=== PATIENT | male | born 1975 | race Caucasian/White ===

== ENCOUNTER 2024-07-22 13:30 | Inpatient (IN) | payer BC ==
[~2024-07-22] VITALS: Ht 157.5 cm; Wt 68.1 kg
--- NOTE | 2024-07-22 13:53 | ED.PDOC ---
General HPI Comments 48 year old male presents to the ED with chief complaint of flank pain. Patient reports that he has been experiencing 7/10 right flank pain with associated nausea and chills since this morning. Patient relays that he took some of his 's 500mg Naproxen with no relief noted. Patient states he has history of kidney stones and kidney stents in the past. Patient denies any dysuria, hematuria, abdominal pain, fever, dizziness, or headache. Chief Complaint: Flank Pain Time Seen by MD: 13:51 Primary Care Provider: UNKNOWN Reviewed notes: Nurses Notes, Medications, Allergies Allergies: Coded Allergies: NO KNOWN ALLERGIES (Unverified , 07/22/24) Information Source: Patient Mode of Arrival: Ambulatory Severity: Moderate Inability to void: None Timing: Hours Duration: Since onset Prehospital treatment: None Onset: Spontaneous Symptoms: None History of: Kidney stone Location: (R) Flank Penile discharge: None Modifying factors: None associated signs and symptoms: Nausea, Flank Pain Past Medical History PAST MEDICAL HISTORY: Kidney Stones Surgical History (Other): Kidney stents Family History Family History: Reviewed,noncontributory to illness Social History Smoker: Cigarettes Alcohol: Denies ETOH Use Drugs: Denies Drug Use Lives In: Home Constitutional: reports: chills; denies: diaphoresis, fatigue, fever, malaise, sweats, weakness, others EENTM: denies: blurred vision, double vision, ear bleeding, ear discharge, ear drainage, ear pain, ear ringing, eye pain, eye redness, hearing loss, mouth pain, mouth swelling, nasal discharge, nose bleeding, nose congestion, nose pain, photophobia, tearing, throat pain, throat swelling, voice changes, others Respiratory: denies: cough, hemoptysis, orthopnea, SOB at rest, shortness of breath, SOB with excertion, stridor, wheezing, others Cardiovascular: denies: chest pain, dizzy spells, diaphoresis, Dyspnea on exertion, edema, irregular heart beat, left arm pain, lightheadedness, palpitations, PND, syncope, others Gastrointestinal: reports: nausea; denies: abdomen distended, abdominal pain, blood streaked bowels, constipated, diarrhea, dysphagia, difficulty swallowing, hematemesis, melena, poor appetite, poor fluid intake, rectal bleeding, rectal pain, vomiting, others Genitourinary: reports: flank pain; denies: burning, dysuria, frequency, hematuria, incontinence, penile discharge, penile sore, pain, testicle pain, testicle swelling, urgency, others Neurological: denies: dizziness, fainting, headache, left sided numbness, left sided weakness, numbness, paresthesia, pre-existing deficit, right sided numbness, right sided weakness, seizure, speech problems, tingling, tremors, weakness, others Musculoskeletal: denies: back pain, gout, joint pain, joint swelling, muscle pain, muscle stiffness, neck pain, others Integumetry: denies: bruises, change in color, change in hair/nails, dryness, laceration, lesions, lumps, rash, wounds, others Allergic/Immunocompromised: denies: Difficulty Healing, Frequent Infections, Hives, Itching, others Hematologic/Lymphatic: denies: anemia, blood clots, easy bleeding, easy bruising, swollen glands, others Endocrine: denies: excessive hunger, excessive sweating, excessive thirst, excessive urination, flushing, intolerance to cold, intolerance to heat, unexplained weight gain, unexplained weight loss, others Psychiatric: denies: anxiety, bipolar disorder, depression, hopeless, panic disorder, schizophrenia, sleepless, suicidal, others All Other Systems: Reviewed and Negative Physical Exam General Appearance: Moderate Distress HEENT: Normal ENT Inspection, Pharynx Normal, TMs Normal Neck: Full Range of Motion, Non-Tender, Normal, Normal Inspection Respiratory: Chest Non-Tender, Lungs Clear, No Accessory Muscle Use, No Respiratory Distress, Normal Breath Sounds Cardiovascular: No Edema, No JVD, No Murmur, No Gallop, Normal Peripheral Pulses, Regular Rate/Rhythm Breast Exam: Deferred Gastrointestinal: No Organomegaly, Non Tender, No Pulsatile Mass, Normal Bowel Sounds, Soft Genitalia: Deferred Pelvic: Deferred Rectal: Deferred Extremities: No calf tenderness, Normal capillary refill, Normal inspection, Normal range of motion, Non-tender, No pedal edema Musculoskeletal : Location: Right Extremity Location: Back Apperance: Limited ROM, Tenderness: Moderate Neurologic: Alert, exchange operator II-XII nml as Tested, No Motor Deficits, Normal Affect, Normal Mood, No Sensory Deficits Cerebellar Function: Normal Reflexes: Normal Skin: Dry, Normal Color, Warm Lymphatic: No Adenopathy Was a procedure done? Was a procedure done?: No Differential Diagnosis Kidney stone (Female): N/A Kidney stone (Male): Pyelonephritis, Urolithiasis, Urinary tract infection X-Ray, Labs, Meds, VS Vital Signs Date Time Temp Pulse Resp B/P (MAP) Pulse Ox O2 Delivery O2 Flow Rate FiO2 07/22/24 16:04 97.9 101 18 133/90 (104) 98 97.9 07/22/24 15:30 17 Room Air* 0 21 07/22/24 13:41 97.6 105 20 149/86 (107) 98 Lab Test 07/22/24 14:02 Range/Units White Blood Count 23.6 H 4.4-10.8 10^3/uL Red Blood Count 5.33 4.5-5.90 10^6/uL Hemoglobin 16.5 13.5-17.5 g/dL Hematocrit 49.6 41.0-53.0 % Mean Corpuscular Volume 93.0 80.0-100.0 fL Mean Corpuscular Hemoglobin 31.0 28.0-32.0 pg Mean Corpuscular Hemoglobin Concent 33.3 32.0-36.0 g/dL Red Cell Distribution Width 13.8 11.8-14.3 % Platelet Count 379 140-450 10^3/uL Mean Platelet Volume 7.3 6.9-10.8 fL Neutrophils (%) (Auto) 88.0 H 37.0-80.0 % Lymphocytes (%) (Auto) 3.4 L 10.0-50.0 % Monocytes (%) (Auto) 8.4 0.0-12.0 % Eosinophils (%) (Auto) 0.0 0.0-7.0 % Basophils (%) (Auto) 0.2 0.0-2.0 % Neutrophils # (Auto) 20.7 H 1.6-8.6 10 ^3/uL Lymphocytes # (Auto) 0.8 0.4-5.4 10 ^3/uL Monocytes # (Auto) 2.0 H 0-1.3 10 ^3/uL Eosinophils # (Auto) 0 0-0.8 10 ^3/uL Basophils # (Auto) 0 0-0.2 10 ^3/uL Nucleated Red Blood Cells 0.0 % Sodium Level 138 136-145 mmol/L Potassium Level 4.3 3.5-5.1 mmol/L Chloride Level 103 98-107 mmol/L Carbon Dioxide Level 28 20-31 mmol/L Anion Gap 7 5-15 Blood Urea Nitrogen 11 9-23 mg/dL Creatinine 1.39 H 0.700-1.30 mg/dL Glomerular Filtration Rate Calc 63 >90 mL/min BUN/Creatinine Ratio 7.9 L 10.0-20.0 Serum Glucose 102 74-106 mg/dL Calcium Level 10.3 8.7-10.4 mg/dL Current Medications Medications (Trade) Dose Ordered Sig/Elle Route Start Time Stop Time Status Last Admin Ondansetron HCl (Zofran) 4 mg ONCE ONCE IV 07/22/24 14:00 07/22/24 14:01 DC 07/22/24 14:00 Sodium Chloride 1,000 ml @ 1,000 mls/hr Q1H ONCE IVB 07/22/24 14:00 07/22/24 14:59 DC 07/22/24 14:00 Ketorolac Tromethamine (Toradol Injection) 30 mg ONCE ONCE IV 07/22/24 14:00 07/22/24 14:01 DC 07/22/24 14:00 IV Hep-Lock was established The patient was given a 1 L bolus of normal saline The patient was given Toradol 30 mg IV push The CT scan of the abdomen and pelvis shows: IMPRESSION: 1. Obstructing calculus in the mid right ureter measuring up to 5 mm. Right renal pelvis calculus measuring up to 12 mm. Other right renal calculi noted. Moderate to severe right hydronephrosis with associated perinephric stranding. Urology evaluation is recommended. 2. Cholelithiasis. Diffuse hepatic steatosis. The urine is pending The CBC shows an elevated white blood cell count 23.6 but the hemoglobin and hematocrit are within normal limits At this time, the patient was being admitted to the hospitalist A urology consult is being obtained. Images Reviewed?: Images reviewed and evaluated by me Time of 1ST Reevaluation: 14:33 Reevaluation 1ST: Unchanged Patient Education/Counseling: Diagnosis, Treatment, Prognosis Family Education/Counseling: No Family Present Departure 1 Departure Time of Disposition: 14:34 Impression: Primary Impression: Right flank pain Additional Impressions: Ureterolithiasis Hydronephrosis, right Disposition: 09 ADMITTED INPATIENT Admit to: Med Surg Condition: Fair Critical Care Note Critical Care Time?: No Stability Stability form required: No Heart Score Heart Score: Heart Score Response (Comments) Value History N/A 0 EKG N/A 0 Age N/A 0 Risk Factors N/A 0 Troponin N/A 0 Total 0 I personally scribed for CLEM JOY MD ([email or web address]) on 07/22/24 at 13:53. Electronically submitted by Chi Wilcox ([email or web address]). CLEM JOY MD Jul 22, 2024 13:53
[2024-07-22] MEDS: SODIUM CHLORIDE 0.9% 1,000 ML IVB ONE (14:00)
[2024-07-22] MEDS: KETOROLAC TROMETH 30 MG/ML 1ML VIAL IV ONE (14:00)
[2024-07-22] MEDS: ONDANSETRON HCL 4 MG/2 ML VIAL IV ONE (14:00)
[2024-07-22 14:19] LABS: Basophils # (auto) 0 10 ^3/uL (0-0.2); Basophils % (auto) 0.2 % (0.0-2.0); Eosinophils # (auto) 0 10 ^3/uL (0-0.8); Hematocrit 49.6 % (41.0-53.0); Hemoglobin 16.5 g/dL (13.5-17.5); Lymphocytes # (auto) 0.8 10 ^3/uL (0.4-5.4); Lymphocytes % (auto) 3.4 % (10.0-50.0); Mean Corpuscular Hgb Conc. 33.3 g/dL (32.0-36.0); Monocytes % (auto) 8.4 % (0.0-12.0); Neutrophils # (auto) 20.7 10 ^3/uL (1.6-8.6); Platelet Count (auto) 379 10^3/uL (140-450); Red Blood Cells 5.33 10^6/uL (4.5-5.90); Red Cell Distribution Width 13.8 % (11.8-14.3); White Blood Cell 23.6 10^3/uL (4.4-10.8)
--- NOTE | 2024-07-22 14:25 | DVH ---
Exam: CT CT AB PEL WO CON-NO ORAL OR IV History: right flank pain Comparison Study: None Technique: Multidetector spiral CT of the abdomen and pelvis was performed from lung bases to pubic symphysis. Imaging was performed without IV contrast. Axial, coronal and sagittal multiplanar reform ats were obtained from the axial data set by the technologist. Radiation dose : Abdomen/Pelvis: CTDIvol 8 mGy, DLP 487 mGy*cm. Findings: Evaluation of solid organs is limited due to lack of intravenous contrast use. Lung Bases: No acute or significant lung base finding. Normal heart size. No pleural or pericardial effusion. Liver: Diffuse hepatic steatosis. Gallbladder and biliary Tree: Cholelithiasis noted without secondary findings of cholecystitis or jaciel iary obstruction. Spleen: Unremarkable Pancreas: The pancreas is grossly normal in appearance. Adrenal Glands: Unremarkable Kidneys: Moderate to severe right hydronephrosis. Calculus in the right renal pelvis measuring up to 12 mm. Calculus in the mid right ureter measuring up to 5 mm. Other right renal calculi noted. Perin ephric stranding on the right. Left kidney appears unremarkable. Bladder: Grossly unremarkable for degree of distention. Bowel: The stomach is grossly normal in appearance. Small bowel and colon are normal in caliber and d istribution. The appendix is not visualized; however, no secondary findings of acute appendicitis id entified. Ascites: Absent Lymphadenopathy: No mesenteric, retroperitoneal or periportal lymphadenopathy. Abdominal wall and Mesentery: Unremarkable. Vasculature: The visualized abdominal aorta is normal in size and caliber. Evaluation of abdominal a nd pelvic vessels is limited due to lack of intravenous contrast. Pelvic Organs: Unremarkable Musculoskeletal: Grade 1 spondylolisthesis L5 on S1. IMPRESSION: 1. Obstructing calculus in the mid right ureter measuring up to 5 mm. Right renal pelvis calculus me asuring up to 12 mm. Other right renal calculi noted. Moderate to severe right hydronephrosis with associated perinephric stranding. Urology evaluation is recommended. 2. Cholelithiasis. Diffuse hepatic steatosis. Radiation optimization: All CT scans at this facility use at least one of these dose optimization cosme hniques: Automated exposure control mA and/or kV adjustment per patient size (includes targeted exams where dose is matched to clinical indication) or iterative reconstruction. HS:Y
[2024-07-22 14:37] LABS: Chloride 103 mmol/L (98-107); Potassium 4.3 mmol/L (3.5-5.1); Sodium 138 mmol/L (136-145)
[2024-07-22 14:38] LABS: Anion Gap 7 (5-15); Calcium 10.3 mg/dL (8.7-10.4); Carbon Dioxide 28 mmol/L (20-31)
[2024-07-22 14:43] LABS: BUN/Creatinine Ratio 7.9 (10.0-20.0); Blood Urea Nitrogen 11 mg/dL (9-23); Glucose 102 mg/dL (74-106)
[2024-07-22 15:30] VITALS: RESP 17
[2024-07-22 16:45] VITALS: RESP 18
[2024-07-22 16:50] VITALS: BP 131/85; PULSE 104; RESP 20; TEMP 97.8; O2SAT 96
--- NOTE | 2024-07-22 16:55 | DVHHP2 ---
History of Present Illness Reason for Visit: Right flank pain History of Present Illness Moreno Nina is a 48-year-old male with past medical history of kidney stones, who came into the ER with complaints of flank pain that radiates to his abdomen. Patient states the pain started this morning with associated nausea. Denies any dysuria, hematuria, or frequency. Renal/: Other (kidney stones) Past Surgical History: Other (Urethral stent) Family History: None Smoke: <1 pack per day ALCOHOL: none Drugs: None Lives: with Family Domestic Violence: Neg Review of Systems Constitutional: No: Fever, Chills, Sweats, Weakness, Malaise, Other Eyes: No: Pain, Vision change, Conjunctivae inflammation, Eyelid inflammation, Other, Redness ENT: No: Ear pain, Ear discharge, Nose pain, Nose discharge, Nose congestion, Mouth pain, Mouth swelling, Throat pain, Throat swelling, Other Respiratory: No: Cough, Dry, Shortness of breath, SOB with excertion, Wheezing, Hemoptysis, Pleuritic Pain, Sputum, Wheezing, Other Cardiovascular: No: Chest Pain, Palpitations, Orthopnea, Paroxysmal Noc. Dyspnea, Edema, Lt Headedness, Other Gastrointestinal: No: Nausea, Vomiting, Abdominal Pain, Diarrhea, Constipation, Melena, Hematochezia, Other Genitourinary: No Dysuria; Frequency; No Incontinence, No Hematuria, No Retention, No Other Musculoskeletal: back pain (right flank); No: other, neck pain, shoulder pain, arm pain, hand pain, leg pain, foot pain Skin: No: Rash, Lesions, Jaundice, Bruising, Other Neurological: No: Weakness, Numbness, Incoordination, Change in speech, Confusion, Seizures, Other Allergies: Coded Allergies: NO KNOWN ALLERGIES (Unverified , 07/22/24) Exam Vital Signs Vital Signs Date Time Temp Pulse Resp B/P (MAP) Pulse Ox O2 Delivery O2 Flow Rate FiO2 07/22/24 16:04 97.9 101 18 133/90 (104) 98 97.9 07/22/24 15:30 Room Air* 0 21 General Appearance: Alert, Oriented X3, Cooperative, moderate distress HEENT: Atraumatic, PERRLA Respiratory: Clear to auscultation, Normal air movement Cardiovascular: Regular rate, Normal S1, Normal S2 Abdominal: Normal bowel sounds, Soft, Other (right flank pain that radiates to front of abdomen) Extremities: No clubbing, No cyanosis, No edema, Normal pulses Skin: No rashes, No breakdown, No significant lesion Neuro: Normal gait, Normal speech, Strength at 5/5 X4 ext Psych/Mental Status: Mental status NL, Mood NL Labs/Xrays Labs Test 07/22/24 14:02 Range/Units White Blood Count 23.6 H 4.4-10.8 10^3/uL Red Blood Count 5.33 4.5-5.90 10^6/uL Hemoglobin 16.5 13.5-17.5 g/dL Hematocrit 49.6 41.0-53.0 % Mean Corpuscular Volume 93.0 80.0-100.0 fL Mean Corpuscular Hemoglobin 31.0 28.0-32.0 pg Mean Corpuscular Hemoglobin Concent 33.3 32.0-36.0 g/dL Red Cell Distribution Width 13.8 11.8-14.3 % Platelet Count 379 140-450 10^3/uL Mean Platelet Volume 7.3 6.9-10.8 fL Neutrophils (%) (Auto) 88.0 H 37.0-80.0 % Lymphocytes (%) (Auto) 3.4 L 10.0-50.0 % Monocytes (%) (Auto) 8.4 0.0-12.0 % Eosinophils (%) (Auto) 0.0 0.0-7.0 % Basophils (%) (Auto) 0.2 0.0-2.0 % Neutrophils # (Auto) 20.7 H 1.6-8.6 10 ^3/uL Lymphocytes # (Auto) 0.8 0.4-5.4 10 ^3/uL Monocytes # (Auto) 2.0 H 0-1.3 10 ^3/uL Eosinophils # (Auto) 0 0-0.8 10 ^3/uL Basophils # (Auto) 0 0-0.2 10 ^3/uL Nucleated Red Blood Cells 0.0 % Sodium Level 138 136-145 mmol/L Potassium Level 4.3 3.5-5.1 mmol/L Chloride Level 103 98-107 mmol/L Carbon Dioxide Level 28 20-31 mmol/L Anion Gap 7 5-15 Blood Urea Nitrogen 11 9-23 mg/dL Creatinine 1.39 H 0.700-1.30 mg/dL Glomerular Filtration Rate Calc 63 >90 mL/min BUN/Creatinine Ratio 7.9 L 10.0-20.0 Serum Glucose 102 74-106 mg/dL Calcium Level 10.3 8.7-10.4 mg/dL Exam: CT AB PEL WO CON-NO ORAL OR IV Findings: Evaluation of solid organs is limited due to lack of intravenous contrast use. Lung Bases: No acute or significant lung base finding. Normal heart size. No pleural or pericardial effusion. Liver: Diffuse hepatic steatosis. Gallbladder and biliary Tree: Cholelithiasis noted without secondary findings of cholecystitis or biliary obstruction. Spleen: Unremarkable Pancreas: The pancreas is grossly normal in appearance. Adrenal Glands: Unremarkable Kidneys: Moderate to severe right hydronephrosis. Calculus in the right renal pelvis measuring up to 12 mm. Calculus in the mid right ureter measuring up to 5 mm. Other right renal calculi noted. Perinephric stranding on the right. Left kidney appears unremarkable. Bladder: Grossly unremarkable for degree of distention. Bowel: The stomach is grossly normal in appearance. Small bowel and colon are normal in caliber and distribution. The appendix is not visualized; however, no secondary findings of acute appendicitis identified. Ascites: Absent Lymphadenopathy: No mesenteric, retroperitoneal or periportal lymphadenopathy. Abdominal wall and Mesentery: Unremarkable. Vasculature: The visualized abdominal aorta is normal in size and caliber. Evaluation of abdominal and pelvic vessels is limited due to lack of intravenous contrast. Pelvic Organs: Unremarkable Musculoskeletal: Grade 1 spondylolisthesis L5 on S1. IMPRESSION: 1. Obstructing calculus in the mid right ureter measuring up to 5 mm. Right renal pelvis calculus measuring up to 12 mm. Other right renal calculi noted. Moderate to severe right hydronephrosis with associated perinephric stranding. Urology evaluation is recommended. 2. Cholelithiasis. Diffuse hepatic steatosis. Assessment/Plan Assessment/Plan Assessment: Hydronephrosis, right, Kidney stones, Obstructing calculi in right ureter, Plan: Admit to Med-Surg, Urology consult, Flomax, IV hydration, Pain management, Strain all urine, Plan discussed with: Patient, Spouse My Orders Orders - ELIZABETH QUINN Procedure Category Date Status Time Admit ADMIT 07/22/24 Verified 16:37 Code Status CODE 07/22/24 Verified 16:37 0.9% Ns 1000 Ml PHA 07/22/24 Verified 16:45 Hydrocodone-Acet PHA 07/22/24 Verified 5/325mg Tab ([place] 16:45 Ondansetron Hcl PHA 07/22/24 Verified (Zofran) 16:45 Docusate Sodium PHA 07/22/24 Verified Capsule ([place] 16:45 Complete Blood Count LAB 07/23/24 Verified 04:00 Comprehensive LAB 07/23/24 Verified Metabolic Panel 04:00 Condition: Serious LAKEISHA 07/22/24 Verified 16:37 Acetaminophen Tablet PHA 07/22/24 Verified (Tylenol Tablet) 16:45 Tamsulosin PHA 07/22/24 Verified Hydrochloride (Flomax) 16:45 Tamsulosin PHA 07/23/24 Verified Hydrochloride (Flomax) 18:00 * Urology Consult CONS 07/22/24 Verified 16:37 Ketorolac Injection PHA 07/22/24 Verified (Toradol Injection) 16:45 Date of Service: Jul 22, 2024 Billing Provider: ELIZABETH QUINN Common Visit Codes: [id number] INP/OBS CARE (MOD) ELIZABETH QUINN Jul 22, 2024 16:55
[2024-07-22 17:24] LABS: Urine Bacteria MOD /hpf (None Seen); Urine Blood 2+ /uL (Negative); Urine Budding Yeast OCCASIONAL /hpf (None Seen); Urine Clarity Turbid (Clear); Urine Color Yellow (Yellow); Urine Mucus FEW (None Seen); Urine Protein, UAD 1+ (Negative); Urine Specific Gravity 1.036 (1.001-1.035); Urine Urobilinogen Normal (Negative); Urine WBC 199 /hpf (0 - 3); Urine pH 5.5 (5.0-9.0)
[2024-07-22] MEDS: TAMSULOSIN HYDROCHLORIDE 0.4 MG CAP PO ONE (18:11)
[2024-07-22] MEDS: SODIUM CHLORIDE 0.9% 1,000 ML IV SCH (18:13)
[2024-07-22 20:20] VITALS: PULSE 120; RESP 18; O2SAT 96
[2024-07-22] MEDS: KETOROLAC TROMETH 30 MG/ML 1ML VIAL IV PRN (21:03)
[2024-07-22] MEDS: HYDROcodone-ACET 5/325MG TAB PO PRN (21:04)
[2024-07-23] MEDS: ONDANSETRON HCL 4 MG/2 ML VIAL IV PRN (03:37)
[2024-07-23 04:32] LABS: Alanine Aminotransferase 39 U/L (7-40); Albumin 3.7 g/dL (3.2-4.8); Alkaline Phosphatase 71 U/L (46-116); Anion Gap 6 (5-15); Aspartate Aminotransferase 28 U/L (13-40); BUN/Creatinine Ratio 10.5 (10.0-20.0); Bilirubin, Total 0.5 mg/dL (0.2-1.0); Blood Urea Nitrogen 13 mg/dL (9-23); Calcium 8.9 mg/dL (8.7-10.4); Carbon Dioxide 26 mmol/L (20-31); Chloride 106 mmol/L (98-107); Potassium 4.8 mmol/L (3.5-5.1); Sodium 138 mmol/L (136-145); Total Protein 6.1 g/dL (5.7-8.2)
[2024-07-23 04:34] LABS: Hematocrit 41.9 % (41.0-53.0); Mean Corpuscular Hgb Conc. 33.4 g/dL (32.0-36.0); Mean Corpuscular Volume 92.6 fL (80.0-100.0); Platelet Count (auto) 301 10^3/uL (140-450); Red Blood Cells 4.52 10^6/uL (4.5-5.90); Red Cell Distribution Width 13.6 % (11.8-14.3); White Blood Cell 22.2 10^3/uL (4.4-10.8)
[2024-07-23 04:45] LABS: Basophils % (manual) 0 (0.0-2.0); Blast Cells 0; Eosinophils % (manual) 0 (0-7); Metamyelocytes % 0; Myelocytes % 0; Promyelocytes % 0
[2024-07-23 04:47] LABS: Glucose 127 mg/dL (74-106)
[2024-07-23 05:51] LABS: Band Neutrophils % (manual) 17; Lymphocytes % (manual) 5 (10.0-50.0); Monocytes % (manual) 2 (0-12); Platelet Estimate Adequate; RBC Morphology Normal; Reactive Lymphocytes 2
--- NOTE | 2024-07-23 09:17 | DVHINCON2 ---
Date of service: Jul 23, 2024 Referring Physician ER Reason for Consultation Infected UA, elevated WBC and moderate right hydronephrosis due to 5 mm mid ureteral stone History of Present Illness 48 year old male presents to the ED with chief complaint of flank pain. Patient reports that he has been experiencing 7/10 right flank pain with associated nausea and chills since this morning. Patient relays that he took some of his 's 500mg Naproxen with no relief noted. Patient states he has history of kidney stones and kidney stents in the past. Patient denies any dysuria, hematuria, abdominal pain, fever, dizziness, or headache. Chief Complaint: Flank Pain Primary Care Provider: UNKNOWN Reviewed notes: Nurses Notes, Medications, Allergies Allergies: Coded Allergies: NO KNOWN ALLERGIES (Unverified , 07/22/24) Information Source: Patient Mode of Arrival: Ambulatory Severity: Moderate Inability to void: None Timing: Hours Duration: Since onset Prehospital treatment: None Onset: Spontaneous Symptoms: None History of: Kidney stone Location: (R) Flank Penile discharge: None Modifying factors: None associated signs and symptoms: Nausea, Flank Pain Past Medical History Kidney Stones Past Surgical History Kidney stents Family History: Patient reports no known family medical history. Allergies: Coded Allergies: NO KNOWN ALLERGIES (Unverified , 07/22/24) Home Meds No Active Prescriptions or Reported Meds Current Medications Current Medications Medications (Trade) Dose Ordered Sig/Elle Route PRN Reason Start Time Stop Time Status Last Admin Sodium Chloride 1,000 ml @ 100 mls/hr Q10H IV 07/22/24 16:45 07/23/24 02:52 Acetaminophen/ Hydrocodone Bitart ([place] 5/325MG Tab) 1 tab Q4HP PRN PO MODERATE PAIN (4-6 PAIN SCALE) 07/22/24 16:45 07/23/24 03:37 Ondansetron HCl (Zofran) 4 mg Q4HP PRN IV NAUSEA / VOMITING 07/22/24 16:45 07/23/24 03:37 Docusate Sodium (Colace Capsule) 100 mg BIDPRN PRN PO FOR CONSTIPATION 07/22/24 16:45 Acetaminophen (Tylenol Tablet) 650 mg Q6HP PRN PO PAIN SCALE 1-3 OR TEMP>100.4 07/22/24 16:45 Tamsulosin HCl (Flomax) 0.4 mg QPM PO 07/23/24 18:00 Ketorolac Tromethamine (Toradol Injection) 30 mg Q6HPRN PRN IV SEVERE PAIN (7-10 PAIN SCALE) 07/22/24 16:45 07/27/24 16:44 07/23/24 03:37 Review of Systems Constitutional: reports: chills; denies: diaphoresis, fatigue, fever, malaise, sweats, weakness, others EENTM: denies: blurred vision, double vision, ear bleeding, ear discharge, ear drainage, ear pain, ear ringing, eye pain, eye redness, hearing loss, mouth pain, mouth swelling, nasal discharge, nose bleeding, nose congestion, nose pain, photophobia, tearing, throat pain, throat swelling, voice changes, others Respiratory: denies: cough, hemoptysis, orthopnea, SOB at rest, shortness of breath, SOB with excertion, stridor, wheezing, others Cardiovascular: denies: chest pain, dizzy spells, diaphoresis, Dyspnea on exertion, edema, irregular heart beat, left arm pain, lightheadedness, pal pitations, PND, syncope, others Gastrointestinal: reports: nausea; denies: abdomen distended, abdominal pain, blood streaked bowels, constipated, diarrhea, dysphagia, difficulty swallowing, hematemesis, melena, poor appetite, poor fluid intake, rectal bleeding, rectal pain, vomiting, others Genitourinary: reports: flank pain; denies: burning, dysuria, frequency, hematuria, incontinence, penile discharge, penile sore, pain, testicle pain, testicle swelling, urgency, others Neurological: denies: dizziness, fainting, headache, left sided numbness, left sided weakness, numbness, paresthesia, pre-existing deficit, right sided numbness, right sided weakness, seizure, speech problems, tingling, tremors, weakness, others Musculoskeletal: denies: back pain, gout, joint pain, joint swelling, muscle pain, muscle stiffness, neck pain, others Integumetry: denies: bruises, change in color, change in hair/nails, dryness, laceration, lesions, lumps, rash, wounds, others Allergic/Immunocompromised: denies: Difficulty Healing, Frequent Infections, Hives, Itching, others Hematologic/Lymphatic: denies: anemia, blood clots, easy bleeding, easy bruising, swollen glands, others Endocrine: denies: excessive hunger, excessive sweating, excessive thirst, excessive urination, flushing, intolerance to cold, intolerance to heat, unexplained weight gain, unexplained weight loss, others Psychiatric: denies: anxiety, bipolar disorder, depression, hopeless, panic disorder, schizophrenia, sleepless, suicidal, others All Other Systems: Reviewed and Negative Vital Signs Vital Signs Date Time Temp Pulse Resp B/P (MAP) Pulse Ox O2 Delivery O2 Flow Rate FiO2 07/23/24 08:30 98.2 122 16 103/62 (76) 96 98.2 07/22/24 20:20 Room Air* 0 21 Physical Exam General Appearance: Moderate Distress HEENT: Normal ENT Inspection, Pharynx Normal, TMs Normal Neck: Full Range of Motion, Non-Tender, Normal, Normal Inspection Respiratory: Chest Non-Tender, Lungs Clear, No Accessory Muscle Use, No Respiratory Distress, Normal Breath Sounds Cardiovascular: No Edema, No JVD, No Murmur, No Gallop, Normal Peripheral Pul ses, Regular Rate/Rhythm Breast Exam: Deferred Gastrointestinal: No Organomegaly, Non Tender, No Pulsatile Mass, Normal Bowel Sounds, Soft Genitalia: Deferred Pelvic: Deferred Rectal: Deferred Extremities: No calf tenderness, Normal capillary refill, Normal inspection, Normal range of motion, Non-tender, No pedal edema Musculoskeletal : Location: Right Extremity Location: Back Apperance: Limited ROM, Tenderness: Moderate Neurologic: Alert, fruit and vegetable parer II-XII nml as Tested, No Motor Deficits, Normal Affect, Normal Mood, No Sensory Deficits Cerebellar Function: Normal Reflexes: Normal Skin: Dry, Normal Color, Warm Lymphatic: No Adenopathy Labs/Diagnostic Data Labs Test 07/23/24 03:55 07/22/24 17:03 07/22/24 14:02 Range/Units White Blood Count 22.2 H 4.4-10.8 10^3/uL Red Blood Count 4.52 4.5-5.90 10^6/uL Hemoglobin 14.0 # 13.5-17.5 g/dL Hematocrit 41.9 # 41.0-53.0 % Mean Corpuscular Volume 92.6 80.0-100.0 fL Mean Corpuscular Hemoglobin 31.0 28.0-32.0 pg Mean Corpuscular Hemoglobin Concent 33.4 32.0-36.0 g/dL Red Cell Distribution Width 13.6 11.8-14.3 % Platelet Count 301 140-450 10^3/uL Mean Platelet Volume 7.6 6.9-10.8 fL Neutrophils (%) (Auto) 37.0-80.0 % Lymphocytes (%) (Auto) 10.0-50.0 % Monocytes (%) (Auto) 0.0-12.0 % Basophils (%) (Auto) 0.0-2.0 % Neutrophils # (Auto) 1.6-8.6 10 ^3/uL Lymphocytes # (Auto) 0.4-5.4 10 ^3/uL Monocytes # (Auto) 0-1.3 10 ^3/uL Differential Total Cells Counted 100.0 100 Neutrophils % (Manual) 74 37.0-80.0 Band Neutrophils % (Manual) 17 Lymphocytes % (Manual) 5 L 10.0-50.0 Monocytes % (Manual) 2 0-12 Eosinophils % (Manual) 0 0-7 Basophils % (Manual) 0 0.0-2.0 Metamyelocytes % (manual) 0 Myelocytes % (Manual) 0 Promyelocytes % (Manual) 0 Blast Cells % (Manual) 0 Reactive Lymphocytes 2 Platelet Estimate Adequate Red Blood Cell Morphology Normal Sodium Level 138 136-145 mmol/L Potassium Level 4.8 3.5-5.1 mmol/L Chloride Level 106 98-107 mmol/L Carbon Dioxide Level 26 20-31 mmol/L Anion Gap 6 5-15 Blood Urea Nitrogen 13 9-23 mg/dL Creatinine 1.24 0.700-1.30 mg/dL Glomerular Filtration Rate Calc 72 >90 mL/min BUN/Creatinine Ratio 10.5 10.0-20.0 Serum Glucose 127 H 74-106 mg/dL Calcium Level 8.9 8.7-10.4 mg/dL Total Bilirubin 0.5 0.2-1.0 mg/dL Aspartate Amino Transferase (AST) 28 13-40 U/L Alanine Aminotransferase (ALT) 39 7-40 U/L Alkaline Phosphatase 71 46-116 U/L Total Protein 6.1 5.7-8.2 g/dL Albumin 3.7 3.2-4.8 g/dL Urine Color Yellow Yellow Urine Clarity Turbid H Clear Urine pH 5.5 5.0-9.0 Urine Specific [place] 1.036 H 1.001-1.035 Urine Protein 1+ H Negative Urine Ketones Trace Negative Urine Blood 2+ H Negative /uL Urine Nitrite 1+ H Negative Urine Bilirubin Negative Negative Urine Urobilinogen Normal Negative mg/dL Urine Leukocyte Esterase 3+ Negative /uL Urine RBC 64 0 - 3 /hpf Urine WBC 199 0 - 3 /hpf Urine Squamous Epithelial Cells Few <5 /hpf Urine Bacteria Mod H None Seen /hpf Urine Mucus Few None Seen Urine Yeast (Budding) Occasional None Seen /hpf Urine Glucose 2+ H Normal mg/dL Eosinophils (%) (Auto) 0.0 0.0-7.0 % Eosinophils # (Auto) 0 0-0.8 10 ^3/uL Basophils # (Auto) 0 0-0.2 10 ^3/uL Nucleated Red Blood Cells 0.0 % Assessment UTI Moderate right hydronephrosis Right flank pain Mid ureteral stone 5 mm with obstruction on right Plan/Recommendation Urgent Right PNT placement per IR service requested - unfortunately 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 Will proceed with cystoscopy with right ureteral stent placement today urgently Outpatient lithotripsy TBA Plan discussed with: Patient, Other JORDIN PICHARDO MD Jul 23, 2024 09:17
[2024-07-23 13:00] VITALS: BP 107/61; PULSE 131; RESP 20; TEMP 98.3; O2SAT 95
[2024-07-23 14:14] VITALS: PULSE 130; RESP 20; O2SAT 95
[2024-07-23 15:59] LABS: INR 1.25 (0.9-1.15); Partial Thromboplastin Time 28.9 SEC (24.5-34.5)
--- NOTE | 2024-07-23 16:28 | DVH ---
CT ABDOMEN AND PELVIS WITHOUT CONTRAST CLINICAL HISTORY: flank pain, comparative imaging TECHNIQUE: Multiple contiguous axial images of the abdomen and pelvis without intravenous contrast. The images were reformatted degenerate coronal and sagittal reconstructions. All CT scans at this medical facility are performed using dose modulation techniques as appropriate t o a performed exam including the following:Automated exposure control was utilized; adjustment of the MA and/or KV according to patient size; and use of iterative reconstruction technique. Radiation Dose Information: CT Dose: CTDI volume is 7.6 mGy. Dose-length product is 446 mGy*cm Comparison: CT CT AB PEL WO CON-NO ORAL OR IV on DOS: 07/22/24 FINDINGS: Evaluation of the abdomen and pelvis is limited without intravenous contrast. Previously seen obstructing calculus in the right mid ureter is no longer seen. There has been interv al decrease in right hydroureter and right hydronephrosis. There are again multiple right renal calcu li which measure up to 12 mm. There is stable right perinephric fat stranding. There is no evidence o f left renal calculus or hydronephrosis. There is stable calcified gallstone in the gallbladder. There is diffuse fatty infiltration of the li valeriy. The pancreas, adrenal glands, and spleen appear within normal limits. there is no free flui d or free air. The stomach grossly appears unremarkable. The small and large bowel loops demonstrate normal caliber and appear within normal limits.. The abdominal aorta and IVC appear within normal limits. The bladder appears unremarkable for the degree of distention. There is no evidence of a bladder calc ulus. Pelvic organ appears within normal limits. There is no gross evidence of a pelvic mass. There is no free fluid collection. There is patchy opacity in the right lung base which may represent atelectasis versus developing airs pace disease. There is no acute osseous abnormality. IMPRESSION: 1. Previously seen obstructing calculus in the right mid ureter is no longer seen. There has been int erval decrease in right hydroureter and right hydronephrosis. There is stable right perinephric fat s tranding. 2. Redemonstrated are multiple right renal calculi measuring up to 12 mm. There is no evidence of lef t renal nephrolithiasis or hydronephrosis. 3. Hepatic steatosis. 4. Cholelithiasis. 5. Patchy opacity in the right lung base may represent atelectasis versus developing airspace disease . Clinical correlation is recommended. HS:Y
[2024-07-23 16:37] VITALS: BP 113/65; PULSE 124; RESP 19; TEMP 98.4; O2SAT 93
[2024-07-23] MEDS: TAMSULOSIN HYDROCHLORIDE 0.4 MG CAP PO SCH (18:08)
--- NOTE | 2024-07-23 18:20 | DVHPN2 ---
Subjective Seen and examined at bedside, patient is septic. Rocephin and IVF. For Nephrostomy tube tomorrow. Changes from previous H/P or p: No Changes Eyes: No Pain, No Vision change, No Conjunctivae inflammation, No Eyelid inflammation, No Other, No Redness ENT: No Ear pain, No Ear discharge, No Nose pain, No Nose discharge, No Nose congestion, No Mouth pain, No Mouth swelling, No Throat pain, No Throat swelling, No Other Cardiovascular: No Chest Pain, No Palpitations, No Orthopnea, No Paroxysmal Noc. Dyspnea, No Edema, No Lt Headedness, No Other Respiratory: No Cough, No Dry, No Shortness of breath, No SOB with excertion, No Wheezing, No Hemoptysis, No Pleuritic Pain, No Sputum, No Other Gastrointestinal: No Nausea, No Vomiting, No Abdominal Pain, No Diarrhea, No Constipation, No Melena, No Hematochezia, No Other Genitourinary: No Dysuria, No Frequency, No Incontinence, No Hematuria, No Retention, No Other Musculoskeletal: No other, No neck pain, No shoulder pain, No arm pain; back pain (right flank); No hand pain, No leg pain, No foot pain Skin: No Rash, No Lesions, No Jaundice, No Bruising, No Other Objective Vitals Vital Signs Date Time Temp Pulse Resp B/P (MAP) Pulse Ox O2 Delivery O2 Flow Rate FiO2 07/23/24 16:37 98.4 124 19 113/65 (81) 93 98.4 07/23/24 14:14 Room Air* 0 21 Exam Gen: in bed NAD Cvs: N S1/S2, RRR Resp: BLAE Abd: Soft, NT, BS+ Phone Technician: AAO x 4 Ext: Flank pain Medications Current Medications Medications Dose Ordered Sig/Elle Route Start Time Stop Time Status Last Admin Dose Admin Sodium Chloride 1,000 ml @ 100 mls/hr Q10H IV 07/22/24 16:45 07/23/24 13:50 100 MLS/HR Acetaminophen/ Hydrocodone Bitart 1 tab Q4HP PRN PO 07/22/24 16:45 07/23/24 11:44 1 TAB Ondansetron HCl 4 mg Q4HP PRN IV 07/22/24 16:45 07/23/24 16:23 4 MG Docusate Sodium 100 mg BIDPRN PRN PO 07/22/24 16:45 Acetaminophen 650 mg Q6HP PRN PO 07/22/24 16:45 Tamsulosin HCl 0.4 mg QPM PO 07/23/24 18:00 07/23/24 18:08 0.4 MG Ketorolac Tromethamine 30 mg Q6HPRN PRN IV 07/22/24 16:45 07/27/24 16:44 07/23/24 03:37 30 MG Laboratory Results Laboratory Tests 07/23/24 03:55 Chemistry Test 07/23/24 03:55 Albumin 3.7 g/dL (3.2-4.8) Calcium Level 8.9 mg/dL (8.7-10.4) Total Protein 6.1 g/dL (5.7-8.2) Coagulation Test 07/23/24 15:20 Prothrombin Time 13.0 sec (9.3-11.8) H Prothrombin Time INR 1.25 (0.9-1.15) H Activated Partial Thromboplast Time 28.9 SEC (24.5-34.5) LFT Test 07/23/24 03:55 Alanine Aminotransferase (ALT) 39 U/L (7-40) Alkaline Phosphatase 71 U/L (46-116) Aspartate Amino Transferase (AST) 28 U/L (13-40) Total Bilirubin 0.5 mg/dL (0.2-1.0) Urinalysis Test 07/22/24 17:03 Urine Color Yellow (Yellow) Urine Clarity Turbid (Clear) H Urine pH 5.5 (5.0-9.0) Urine Specific [place] 1.036 (1.001-1.035) Urine Protein 1+ (Negative) H Urine Ketones Trace (Negative) Urine Blood 2+ /uL (Negative) H Urine Nitrite 1+ (Negative) H Urine Bilirubin Negative (Negative) Urine Urobilinogen Normal mg/dL (Negative) Urine Leukocyte Esterase 3+ /uL (Negative) Urine RBC 64 /hpf (0 - 3) Urine WBC 199 /hpf (0 - 3) Urine Squamous Epithelial Cells Few /hpf (<5) Urine Bacteria Mod /hpf (None Seen) H Urine Mucus Few (None Seen) Urine Yeast (Budding) Occasional /hpf (None Urine Glucose 2+ mg/dL (Normal) H Assessment/Plan Assessment/Plan # Sepsis due to complicated UTI - Rocephin IV # Right Hydronephrosis - Nephrostomy Tube by IR - Urology Cx # ADDY due to Obstruction - Monitor renal function # Goals of care >18 mins FULL CODE Plan discussed with: Patient, Spouse My Orders Orders - EARL VILLAVICENCIO MD Procedure Category Date Status Time Ceftriaxone Ivpb PHA 07/23/24 Transmitted Rocephin 18:30 Ceftriaxone Ivpb PHA 07/24/24 Transmitted Rocephin 09:00 Date of Service: Jul 23, 2024 Billing Provider: EARL VILLAVICENCIO MD Common Visit Codes: 04360-[id number] INP/OBS CARE(HIGH) Secondary Visit Codes: 34588-[id number] CARE PLAN 30 MINUTES EARL VILLAVICENCIO MD Jul 23, 2024 18:20
[2024-07-23] MEDS: cefTRIAXone 2GM/50ML D5W 50 ML IV ONE (18:54)
[2024-07-23] MEDS ORDERED: MAALOX PLUS or MAALOX 30 ML PO PRN (19:15)
[2024-07-23 20:00] VITALS: PULSE 95; RESP 20
[2024-07-23] MEDS: ACETAMINOPHEN 325 MG TAB PO PRN (20:48)
[2024-07-23] MEDS: DOCUSATE SOD 100 MG CAP PO PRN (20:48)
[2024-07-23 21:00] VITALS: BP 118/64; PULSE 134; RESP 20; TEMP 100.5; O2SAT 93
[2024-07-24 01:00] VITALS: BP 108/66; PULSE 125; RESP 19; TEMP 98.3; O2SAT 93
[2024-07-24 05:00] VITALS: BP 107/69; PULSE 117; RESP 19; TEMP 98.5; O2SAT 91
[2024-07-24 08:52] VITALS: BP 103/67; PULSE 111; RESP 18; TEMP 98.3; O2SAT 100
[2024-07-24] MEDS ORDERED: cefTRIAXone 1GM/50ML D5W 50 ML IV SCH (09:00)
--- NOTE | 2024-07-24 09:18 | DVHPN2 ---
Progress Note - Dictate Date Seen: Jul 24, 2024 Has the PT tested + for MRSA If YES, has PT been informed?: No Medical Necessity Reason Pt with a Central, PICC or Fol: No Medical Necessity Reason Right renal colic due to multiple kidney stones largest measuring 1.2 cm Subjective Patient does not wish to undergo a nephrostomy tube placement at this time. He would like to follow up on outpatient for treatment of his kidney stones. vital signs Vital Sign Date Time Temp Pulse Resp B/P (MAP) Pulse Ox O2 Delivery O2 Flow Rate FiO2 07/24/24 08:52 98.3 111 18 103/67 (79) 100 98.3 07/23/24 20:00 Room Air* 0 21 Total Intake and Output 07/23/24 07/23/24 07/24/24 15:00 23:00 07:00 Intake Total 550 ml 650 ml Output Total 200 ml Balance 550 ml 450 ml medications Current Medications Medications Dose Ordered Sig/Elle Route Start Time Stop Time Status Last Admin Dose Admin Sodium Chloride 1,000 ml @ 100 mls/hr Q10H IV 07/22/24 16:45 07/24/24 03:07 100 MLS/HR Acetaminophen/ Hydrocodone Bitart 1 tab Q4HP PRN PO 07/22/24 16:45 07/23/24 20:48 1 TAB Ondansetron HCl 4 mg Q4HP PRN IV 07/22/24 16:45 07/23/24 20:48 4 MG Docusate Sodium 100 mg BIDPRN PRN PO 07/22/24 16:45 07/23/24 20:48 100 MG Acetaminophen 650 mg Q6HP PRN PO 07/22/24 16:45 07/23/24 20:48 650 MG Tamsulosin HCl 0.4 mg QPM PO 07/23/24 18:00 07/23/24 18:08 0.4 MG Ketorolac Tromethamine 30 mg Q6HPRN PRN IV 07/22/24 16:45 07/27/24 16:44 07/24/24 00:35 30 MG Al Hydrox/Mg Hydrox/Simethicone 15 ml Q8HP PRN PO 07/23/24 19:15 objective PATIENT: KATHY ROTH ACCT: [id number] UNIT: [id number] : 1975 LOC: [facility] ROOM / BED: 0281 / B AGE / SEX: 48 / M ADM STATUS: ADM IN SERVICE 1552 ORDERING PHYSICIAN: JORDIN PICHARDO MD PROCEDURE(s): ABPL - CT AB PEL WO CON-NO ORAL OR IV REASON: flank pain, comparative imaging ORDER NUMBER(s): [id number], ACCESSION NUMBER(s): [id number] CT ABDOMEN AND PELVIS WITHOUT CONTRAST CLINICAL HISTORY: flank pain, comparative imaging TECHNIQUE: Multiple contiguous axial images of the abdomen and pelvis without intravenous contrast. The images were reformatted degenerate coronal and sagittal reconstructions. All CT scans at this medical facility are performed using dose modulation techniques as appropriate to a performed exam including the following:Automated exposure control was utilized; adjustment of the MA and/or KV according to patient size; and use of iterative reconstruction technique. Radiation Dose Information: CT Dose: CTDI volume is 7.6 mGy. Dose-length product is 446 mGy*cm Comparison: CT CT AB PEL WO CON-NO ORAL OR IV on DOS: 07/22/24 FINDINGS: Evaluation of the abdomen and pelvis is limited without intravenous contrast. Previously seen obstructing calculus in the right mid ureter is no longer seen. There has been interval decrease in right hydroureter and right hydronephrosis. There are again multiple right renal calculi which measure up to 12 mm. There is stable right perinephric fat stranding. There is no evidence of left renal calculus or hydronephrosis. There is stable calcified gallstone in the gallbladder. There is diffuse fatty infiltration of the liver. The pancreas, adrenal glands, and spleen appear within normal limits. there is no free fluid or free air. The stomach grossly appears unremarkable. The small and large bowel loops demonstrate normal caliber and appear within normal limits.. The abdominal aorta and IVC appear within normal limits. The bladder appears unremarkable for the degree of distention. There is no evidence of a bladder calculus. Pelvic organ appears within normal limits. There is no gross evidence of a pelvic mass. There is no free fluid collection. There is patchy opacity in the right lung base which may represent atelectasis versus developing airspace disease. There is no acute osseous abnormality. IMPRESSION: 1. Previously seen obstructing calculus in the right mid ureter is no longer seen. There has been interval decrease in right hydroureter and right hydronephrosis. There is stable right perinephric fat stranding. 2. Redemonstrated are multiple right renal calculi measuring up to 12 mm. There is no evidence of left renal nephrolithiasis or hydronephrosis. 3. Hepatic steatosis. 4. Cholelithiasis. 5. Patchy opacity in the right lung base may represent atelectasis versus developing airspace disease. Clinical correlation is recommended. HS:Y ATED BY: MURRAY DESHPANDE MD DICTATED DATE/TIME: 07/23/241626 SIGNED BY: MURRAY DESHPANDE MD SIGNED DATE/TIME: 07/23/241626 CC: laboratory and microbiology Laboratory Tests 07/23/24 03:55 Test 07/23/24 03:55 Range/Units Serum Glucose 127 H 74-106 mg/dL Problem List Right nephrolithiasis Assessment/Plan Right renal calculi multiple Patient wishes to undergo outpatient management with shockwave therapy Plan discussed with: Patient, Spouse Critical Care Time(min): 15 JORDIN PICHARDO MD Jul 24, 2024 09:18
[2024-07-24] MEDS: cefTRIAXone W LIDOCAINE 1 GM IM IM ONE (09:42)
--- NOTE | 2024-07-24 10:59 | ECG ---
[facility] Test Date: 2024-07-23 Test Time: 00:19:16 Pat Name: KATHY ROTH Department: ED Room: 0281 B Gender: M [employer] Project Manager: : 1975 Requested By: CLEM JOY Order Number: [id number] Reading MD: Joss Mcmanus Measurements Intervals [place] Rate: 126 P: 61 ND: 115 QRS: -25 QRSD: 101 T: -2 QT: 318 QTc: 461 Interpretive Statements Sinus tachycardia Borderline left axis deviation RSR' in V1 or V2, probably normal variant Electronically Signed On 07-25-2024 10:24:52 PST by Joss Mcmanus Please click the below link to view image of tracing.
--- NOTE | 2024-07-24 17:51 | DVHDS2 ---
Discharge Summary Date of Admission Jul 22, 2024 at 16:37 Date of Discharge: Jul 24, 2024 Admitting Diagnosis Sepsis Labs/Diagnostic Data: Laboratory Results Test 07/23/24 15:20 07/23/24 03:55 07/22/24 17:03 07/22/24 14:02 Prothrombin Time 13.0 sec (9.3-11.8) Prothrombin Time INR 1.25 (0.9-1.15) Activated Partial Thromboplast Time 28.9 SEC (24.5-34.5) White Blood Count 22.2 10^3/uL (4.4-10.8) Red Blood Count 4.52 10^6/uL (4.5-5.90) Hemoglobin 14.0 g/dL (13.5-17.5) Hematocrit 41.9 % (41.0-53.0) Mean Corpuscular Volume 92.6 fL (80.0-100.0) Mean Corpuscular Hemoglobin 31.0 pg (28.0-32.0) Mean Corpuscular Hemoglobin Concent 33.4 g/dL (32.0-36.0) Red Cell Distribution Width 13.6 % (11.8-14.3) Platelet Count 301 10^3/uL (140-450) Mean Platelet Volume 7.6 fL (6.9-10.8) Neutrophils (%) (Auto) % (37.0-80.0) Lymphocytes (%) (Auto) % (10.0-50.0) Monocytes (%) (Auto) % (0.0-12.0) Basophils (%) (Auto) % (0.0-2.0) Neutrophils # (Auto) 10 ^3/uL (1.6-8.6) Lymphocytes # (Auto) 10 ^3/uL (0.4-5.4) Monocytes # (Auto) 10 ^3/uL (0-1.3) Differential Total Cells Counted 100.0 (100) Neutrophils % (Manual) 74 (37.0-80.0) Band Neutrophils % (Manual) 17 Lymphocytes % (Manual) 5 (10.0-50.0) Monocytes % (Manual) 2 (0-12) Eosinophils % (Manual) 0 (0-7) Basophils % (Manual) 0 (0.0-2.0) Metamyelocytes % (manual) 0 Myelocytes % (Manual) 0 Promyelocytes % (Manual) 0 Blast Cells % (Manual) 0 Reactive Lymphocytes 2 Platelet Estimate Adequate Red Blood Cell Morphology Normal Sodium Level 138 mmol/L (136-145) Potassium Level 4.8 mmol/L (3.5-5.1) Chloride Level 106 mmol/L (98-107) Carbon Dioxide Level 26 mmol/L (20-31) Anion Gap 6 (5-15) Blood Urea Nitrogen 13 mg/dL (9-23) Creatinine 1.24 mg/dL (0.700-1.30) Glomerular Filtration Rate Calc 72 mL/min (>90) BUN/Creatinine Ratio 10.5 (10.0-20.0) Serum Glucose 127 mg/dL (74-106) Calcium Level 8.9 mg/dL (8.7-10.4) Total Bilirubin 0.5 mg/dL (0.2-1.0) Aspartate Amino Transferase (AST) 28 U/L (13-40) Alanine Aminotransferase (ALT) 39 U/L (7-40) Alkaline Phosphatase 71 U/L (46-116) Total Protein 6.1 g/dL (5.7-8.2) Albumin 3.7 g/dL (3.2-4.8) Urine Color Yellow (Yellow) Urine Clarity Turbid (Clear) Urine pH 5.5 (5.0-9.0) Urine Specific [place] 1.036 (1.001-1.035) Urine Protein 1+ (Negative) Urine Ketones Trace (Negative) Urine Blood 2+ /uL (Negative) Urine Nitrite 1+ (Negative) Urine Bilirubin Negative (Negative) Urine Urobilinogen Normal mg/dL (Negative) Urine Leukocyte Esterase 3+ /uL (Negative) Urine RBC 64 /hpf (0 - 3) Urine WBC 199 /hpf (0 - 3) Urine Squamous Epithelial Cells Few /hpf (<5) Urine Bacteria Mod /hpf (None Seen) Urine Mucus Few (None Seen) Urine Yeast (Budding) Occasional /hpf (None Urine Glucose 2+ mg/dL (Normal) Eosinophils (%) (Auto) 0.0 % (0.0-7.0) Eosinophils # (Auto) 0 10 ^3/uL (0-0.8) Basophils # (Auto) 0 10 ^3/uL (0-0.2) Nucleated Red Blood Cells 0.0 % Other Laboratory Tests 12/18/24 03:55 Brief Hx & Hospital Course: 48 year old male presents to the ED with chief complaint of flank pain. Patient reports that he has been experiencing 7/10 right flank pain with associated nausea and chills since this morning. Repeat Ct Scan shows persistent right hydronephrosis with multiple renal pelvic stones. Urology recommend proceeding with right PNT placement tomorrow. Subsequently, he will undergo PCNL vs. ESWL for stone management. Patient was also septic. Patient left AMA prior to procedures. Condition at Discharge: Poor Final Diagnosis/Problems List # Sepsis due to complicated UTI - Rocephin # Right Hydronephrosis - Refused Nephrostomy Tube by IR - Urology Cx # ADDY due to Obstruction # Goals of care >18 mins FULL CODE Discharge Disposition: AMA Discharge Statement: "Patient was advised to return to the ER or call 911 if any headaches, dizziness, shortness of breath, chest pain, abdominal pain, bleeding, fevers, or worsening of medical condition. Patient was counseled about treatment plan, medications, possible side effects, patientverbalized understanding. All questions were answered to the best of my ability. This discharge took greater then 30 minutes in planning, reviewing documentation, counseling the patient, and discussing with other team members." ASSESSMENT ASSESSMENT Assessment Date of Service: Jul 24, 2024 Billing Provider: EARL VILLAVICENCIO MD Common Visit Codes: 37525-TRM/OBS DISCH DAY >30min EARL VILLAVICENCIO MD Jul 24, 2024 17:51
== END 2024-07-24 09:45 | disposition left against medical advice (07) | DRG 872 ==
LOC: ER 13:30 → OVERFLOW 16:37 → WEST WING 07-23 13:10
PROVIDERS: ADMIT Nurse Practitioner Family; ATTEND Internal Medicine
DX: A41.9 Sepsis, unspecified organism (principal); N17.9 Acute kidney failure, unspecified; N20.2 Calculus of kidney with calculus of ureter; N13.6 Pyonephrosis; Z53.29 Procedure and treatment not carried out because of patient's decision for other reasons; K76.0 Fatty (change of) liver, not elsewhere classified; F17.210 Nicotine dependence, cigarettes, uncomplicated; Z79.899 Other long term (current) drug therapy
CPT/HCPCS: 36415; 74176; 80048; 80053; 81001; 85007; 85025; 85027; 85610; 85730; 87086; 93005; G0378; J0696; J1885; J2405